=== PATIENT | female | born 1995 | race Caucasian/White ===

== ENCOUNTER 2017-11-10 01:26 | Emergency (ER) | payer BC, MEDICAID ==
[~2017-11-10] VITALS: Ht 165.1 cm; Wt 59.0 kg
[2017-11-10] MEDS ORDERED: SODIUM CHLORIDE 0.9% 1,000 ML IV ONE ×2 (01:49→03:04)
[2017-11-10 02:12] LABS: BASOPHILS % 0.8 % (0.0-2.0); EOSINOPHILS % 0.4 % (0.0-5.0); HEMATOCRIT. 39.7 % (36.0-48.0); HEMOGLOBIN. 13.4 g/dL (12.0-16.0); LYMPHOCYTES % 34.9 % (20.0-50.0); MEAN CORPUSCULAR HEMOGLOBIN 29.7 pg (28.0-32.0); MEAN CORPUSCULAR VOLUME 87.8 fL (81.0-99.0); MEAN PLATELET VOLUME 7.4 fl (7.4-10.4); MONOCYTES % 9.6 % (2.0-8.0); NEUTROPHILS % 54.3 % (40.0-76.0); PLATELET 300 x1000/uL (130-400); RED BLOOD CELL COUNT 4.52 mill/uL (4.2-5.4); RED CELL DISTRIBUTION WIDTH 13.9 % (11.6-14.6)
[2017-11-10 02:14] LABS: CLARITY URINE CLEAR (CLEAR); COLOR URINE YELLOW (YELLOW); KETONES URINE NEGATIVE (NEGATIVE); LEUKOCYTE ESTERASE URINE 1+ (NEGATIVE); NITRITE URINE NEGATIVE (NEGATIVE); OCCULT BLOOD URINE 2+ (NEGATIVE); PROTEIN URINE NEGATIVE (NEGATIVE); SPECIFIC GRAVITY URINE 1.015 (1.005-1.030); UROBILINOGEN URINE 0.2 E.U./dL (0.2-1.0)
[2017-11-10 02:22] LABS: CHLORIDE 105 mEq/L (98-107); HCG SCREEN NEGATIVE
[2017-11-10 02:26] LABS: ETHANOL BLOOD < 10 mg/dL
[2017-11-10] MEDS ORDERED: ASPIRIN 81MG TABLET PO SCH (03:24)
[2017-11-10 04:01] LABS: *AMPHETAMINES SCREEN URINE NEGATIVE (NEGATIVE)
[2017-11-10 04:02] LABS: *BARBITURATES SCREEN URINE NEGATIVE (NEGATIVE); *BENZODIAZEPINES SCREEN URINE NEGATIVE (NEGATIVE); *COCAINE SCREEN URINE NEGATIVE (NEGATIVE); CANNABINOID URINE SCREEN NEGATIVE (NEGATIVE); OPIATES URINE SCREEN NEGATIVE (NEGATIVE)
[2017-11-10 04:03] LABS: METHADONE URINE SCREEN NEGATIVE (NEGATIVE); PHENCYCLIDINE URINE SCREEN NEGATIVE (NEGATIVE)
[2017-11-10] MEDS ORDERED: IOHEXOL-350 100 ML BOTTLE ONE (04:43)
[2017-11-10] MEDS ORDERED: CEFTRIAXONE 1 G PREMIX 50 ML IV SCH (04:54)
[2017-11-10 05:46] VITALS: BP 109/65
== END 2017-11-10 05:57 | disposition home or self-care (01) ==
LOC: ER 01:26
DX: F41.9 Anxiety disorder, unspecified (principal); N39.0 Urinary tract infection, site not specified
CPT/HCPCS: 36415; 71045; 71275; 80053; 80305; 81003; 83690; 83880; 84484; 84703; 85025; 85379; 87086; 93005; 96361; 96365; 99285; G0482; J0696; J7030; Q9967